=== PATIENT | female | born 1960 | race Caucasian/White ===

== ENCOUNTER 2016-11-29 16:06 | Emergency (ER) | payer OTHER ==
[2016-11-29 16:15] VITALS: BP 165/67
--- NOTE | 2016-11-29 17:05 | ER Document Report ---
ED Medical Screen (RME) - General Chief Complaint: Headache Stated Complaint: HEADACHE,EYE PAIN Time Seen by Provider: 11/29/16 17:03 Mode of Arrival: Ambulatory Information source: Patient Notes: Patient has been having sharp pain to the left scalp and behind her left eye only 1 week despite gabapentin. Patient states she was sent here by her primary care provider because she is also having some flashing lights in the left eye. She also admits to violent shaking of her legs and arms over the past couple of weeks, worsening, while she is awake. No history of seizures. TRAVEL OUTSIDE OF THE [place] IN LAST 30 DAYS: No - Related Data Allergies/Adverse Reactions: hydrocodone [Hydrocodone] Allergy (Verified 11/29/16 16:14) Home Medications: Current Home Medications Escitalopram Oxalate 20 mg PO DAILY 11/29/16 [History] Gabapentin 600 mg PO TID 11/29/16 [History] Losartan Potassium 25 mg PO DAILY 11/29/16 [History] Metformin HCl [Metformin HCl ER] 1,000 mg PO BID 11/29/16 [History] Pravastatin Sodium 40 mg PO DAILY 11/29/16 [History] Tramadol HCl/Acetaminophen [Tramadol-Acetaminophn 37.5-325] 1 each PO BID [History] Trazodone HCl 100 mg PO QHS 11/29/16 [History] Past Medical History - General Information source: Patient - Social History Chew tobacco use (# tins/day): No Frequency of alcohol use: None Drug Abuse: None Neurological Medical History: Denies: Hx Seizures Endocrine Medical History: Reports: Hx Diabetes Mellitus Type 2 Renal/ Medical History: Denies: Hx Peritoneal Dialysis Past Surgical History: Denies: Hx Hysterectomy - POST MENOPAUSE Review of Systems - Review of Systems EENT: See HPI Neurological/Psychological: See HPI Physical Exam - Vital signs Vitals: Temp Pulse Resp BP Pulse Ox 98.9 F 82 18 165/67 H 97 11/29/16 16:12 11/29/16 16:12 11/29/16 16:12 11/29/16 16:12 11/29/16 16:12 - Notes Notes: PHYSICAL EXAMINATION: GENERAL: Well-appearing and in no acute distress. HEAD: Atraumatic, normocephalic. Course - Re-evaluation Re-evalutation: 11/29/16 17:03 Patient is a 56-year-old female who presents to the ER today headache to the left side of her head.. 11/29/16 17:05 - Vital Signs Vital signs: Temp Pulse Resp BP Pulse Ox 98.9 F 82 18 165/67 H 97 11/29/16 16:12 11/29/16 16:12 11/29/16 16:12 11/29/16 16:12 11/29/16 16:12 - Laboratory Result Diagrams: 11/29/16 17:42 11/29/16 17:42 Laboratory results interpreted by me: 11/29/16 11/29/16 17:42 17:42 MCV 105 H MCH 36.4 H Carbon Dioxide 32 H
[2016-11-29 17:56] LABS: ABSOLUTE EOSINOPHILS # (AUTO) 0.1 10^3/uL (0.0-0.6); ABSOLUTE LYMPHOCYTES (AUTO) 1.4 10^3/uL (0.5-4.7); ABSOLUTE MONOCYTES (AUTO) 0.5 10^3/uL (0.1-1.4); ABSOLUTE NEUT (AUTO) 6.4 10^3/uL (1.7-8.2); BASOPHILS % (AUTO) 0.3 % (0-2); EOSINOPHILS % (AUTO) 0.8 % (0-6); HEMATOCRIT 39.6 % (36.0-47.0); HEMOGLOBIN 13.7 g/dL (12.0-15.5); HGB HCT DIFFERENCE 1.5; MEAN CORPUSCULAR HEMOGLOBIN 36.4 pg (27.0-33.4); MEAN CORPUSCULAR HGB CONC 34.6 g/dL (32.0-36.0); MEAN CORPUSCULAR VOLUME 105 fl (80-97); MONOCYTES % (AUTO) 6.1 % (3-13); RED BLOOD COUNT 3.77 10^6/uL (3.72-5.28); RED CELL DISTRIBUTION WIDTH 13.2 % (11.5-14.0); SEGMENTED NEUTROPHILS % (AUTO) 75.8 % (42-78); WHITE BLOOD COUNT 8.5 10^3/uL (4.0-10.5)
[2016-11-29 18:15] LABS: ALANINE AMINOTRANSFERASE 18 U/L (9-52); ALKALINE PHOSPHATASE 57 U/L (38-126); ANION GAP 7 (5-19); ASPARTATE AMINO TRANSFERASE 14 U/L (14-36); BILIRUBIN,DIRECT 0.3 mg/dL (0.0-0.4); BILIRUBIN,TOTAL 0.3 mg/dL (0.2-1.3); BLOOD UREA NITROGEN 11 mg/dL (7-20); CALCIUM 9.5 mg/dL (8.4-10.2); CARBON DIOXIDE 32 mmol/L (22-30); CHLORIDE 104 mmol/L (98-107); CREATININE RESULT 0.76 mg/dL (0.52-1.25); GLUCOSE 101 mg/dL (75-110); POTASSIUM 3.9 mmol/L (3.6-5.0); SODIUM 142.6 mmol/L (137-145); TOTAL PROTEIN 7.2 g/dL (6.3-8.2)
--- NOTE | 2016-11-29 22:23 | ER Document Report ---
ED Headache - General Chief Complaint: Headache Stated Complaint: HEADACHE,EYE PAIN Time Seen by Provider: 11/29/16 17:03 Mode of Arrival: Ambulatory Notes: Patient is a 56-year-old female presents emergency department complaining of headaches and sharp pains on the top of her head and behind her left eye for about 1 week. Patient states she has been taking gabapentin with minimal relief in her symptoms. Patient states that she was referred here to by her primary care for evaluation. Denies any history of seizures, migraines. TRAVEL OUTSIDE OF THE [place] IN LAST 30 DAYS: No - Related Data Allergies/Adverse Reactions: hydrocodone [Hydrocodone] Allergy (Verified 11/29/16 16:14) Home Medications: Current Home Medications Escitalopram Oxalate 20 mg PO DAILY 11/29/16 [History] Gabapentin 600 mg PO TID 11/29/16 [History] Losartan Potassium 25 mg PO DAILY 11/29/16 [History] Metformin HCl [Metformin HCl ER] 1,000 mg PO BID 11/29/16 [History] Pravastatin Sodium 40 mg PO DAILY 11/29/16 [History] Tramadol HCl/Acetaminophen [Tramadol-Acetaminophn 37.5-325] 1 each PO BID [History] Trazodone HCl 100 mg PO QHS 11/29/16 [History] Past Medical History - General Information source: Patient - Social History Smoking Status: Current Every Day Smoker Chew tobacco use (# tins/day): No Frequency of alcohol use: None Drug Abuse: None Family History: Reviewed & Not Pertinent Neurological Medical History: Denies: Hx Seizures Endocrine Medical History: Reports: Hx Diabetes Mellitus Type 2 Renal/ Medical History: Denies: Hx Peritoneal Dialysis Past Surgical History: Denies: Hx Hysterectomy - POST MENOPAUSE Review of Systems - Review of Systems Constitutional: No symptoms reported Neurological/Psychological: See HPI -: Yes All other systems reviewed and negative Physical Exam - Vital signs Vitals: Temp Pulse Resp BP Pulse Ox 98.9 F 82 18 165/67 H 97 11/29/16 16:12 11/29/16 16:12 11/29/16 16:12 11/29/16 16:12 11/29/16 16:12 - Notes Notes: PHYSICAL EXAM GENERAL: Alert, interacts well. HEAD: Normocephalic, atraumatic. EYES: Pupils equal, round, and reactive to light. Extraocular movements intact. ENT: Oral mucosa moist, tongue midline. NECK: Full range of motion. Supple. Trachea midline. LUNGS: Clear to auscultation bilaterally, no wheezes, rales, or rhonchi. No respiratory distress. HEART: Regular rate and rhythm. No murmurs, gallops, or rubs. ABDOMEN: Soft, nondistended, nontender. No guarding, rebound, or rigidity.. Bowel sounds present in all 4 quadrants. EXTREMITIES: Moves all 4 extremities spontaneously. No edema, radial and dorsalis pedis pulses 2/4 bilaterally. No cyanosis. NEUROLOGICAL: Alert and oriented x4. Normal speech. PSYCH: Normal affect, normal mood. SKIN: Warm, dry, normal turgor. No rashes or lesions noted. Course - Re-evaluation Re-evalutation: 11/30/16 21:25 Patient does not have any focal neurologic deficits, nuchal rigidity, vital signs are within normal limits no papilledema. Patient is otherwise no acute distress and hemodynamically stable. Low index for suspicion of acute subarachnoid hemorrhage, meningitis or mass. Low suspicion for acute life- threatening etiology with intact neuro exam therefore no additional imaging or laboratory testing is indicated. Will discharge patient home with strict follow -up with PCP for blood pressure check within the next week. - Vital Signs Vital signs: Temp Pulse Resp BP Pulse Ox 98.9 F 82 18 165/67 H 97 11/29/16 16:12 11/29/16 16:12 11/29/16 16:12 11/29/16 16:12 11/29/16 16:12 - Laboratory Result Diagrams: 11/29/16 17:42 11/29/16 17:42 Laboratory results interpreted by me: 11/29/16 11/29/16 17:42 17:42 MCV 105 H MCH 36.4 H Carbon Dioxide 32 H - Diagnostic Test Radiology reviewed: Image reviewed, Reports reviewed Discharge - Discharge Clinical Impression: Headache Qualifiers: Headache type: unspecified Intractability: not intractable Condition: Good Disposition: HOME, SELF-CARE Additional Instructions: HEADACHE: The physician does not feel that the headache you are experiencing has a serious underlying cause. Most headaches are due to emotional stress, with resultant muscle tension (tension headache). Occasionally, headaches are secondary to changes in the blood vessels of the scalp (vascular headache and migraine headache). Sometimes, a headache is the first symptom of another developing illness, such as a viral infection. You have no evidence of stroke, bleeding, meningitis, or other serious cause of your headache. The treatment of headaches varies with the severity and cause of the pain. Not all headaches need pain shots. In fact, there is evidence that using narcotics for headaches may make them worse in the long run. The physician will determine the therapy that's in your best interest. If you develop a fever, if the headache is different from any you've previously experienced, or if the headache progressively worsens, then call your physician at once or go to the emergency room. FOLLOW-UP CARE: If you have been referred to a physician for follow-up care, call the physician s office for an appointment as you were instructed or within the next two days. If you experience worsening or a significant change in your symptoms, notify the physician immediately or return to the Emergency Department at any time for re-evaluation.
--- NOTE | 2016-11-30 17:08 | RADIOLOGY REPORT (SQ) ---
EXAM DESCRIPTION: CT HEAD WITHOUT COMPLETED DATE/TIME: 11/29/2016 6:20 pm REASON FOR STUDY: headache, sharp pain behind right eye COMPARISON: None. TECHNIQUE: Axial images acquired through the brain without intravenous contrast. Images reviewed wi th bone, brain and subdural windows. Images stored on PACS. LIMITATIONS: None. FINDINGS: VENTRICLES: Normal size and contour. CEREBRUM: No masses. No hemorrhage. No midline shift. Normal pierson/white matter differentiation. N o evidence for acute infarction. CEREBELLUM: No masses. No hemorrhage. No alteration of density. No evidence for acute infarction. EXTRAAXIAL SPACES: No fluid collections. No masses. ORBITS AND GLOBE: No intra- or extraconal masses. Normal contour of globe without masses. CALVARIUM: No fracture. PARANASAL SINUSES: No fluid or mucosal thickening. SOFT TISSUES: No mass or hematoma. OTHER: No other significant finding. IMPRESSION: NORMAL BRAIN CT WITHOUT CONTRAST. COMMENT: WAS EXAM PERFORMED WITHIN 24 HOURS UPON ARRIVAL TO FACILITY? Yes. TECHNICAL DOCUMENTATION: JOB ID: [id number]
== END 2016-11-29 22:21 | disposition home or self-care (01) ==
LOC: ER 16:06
DX: R51 Headache (principal); E11.9 Type 2 diabetes mellitus without complications; F17.200 Nicotine dependence, unspecified, uncomplicated; Z88.5 Allergy status to narcotic agent; Z79.899 Other long term (current) drug therapy
CPT/HCPCS: 36415; 70450; 80053; 85025; 99284